=== PATIENT | male | born 1985 | race Caucasian/White ===

== ENCOUNTER 2017-06-06 17:05 | Emergency (ER) | payer BC ==
--- NOTE | 2017-06-06 17:33 | UC ---
UC General HPI - HPI Summary HPI Summary: 31 year old male present sudden with facial flushing and dizziness. I will send him to the ER. - History of Current Complaint Stated Complaint: FACE WENT FLUSH Time Seen by Provider: 06/06/17 17:33 Hx Obtained From: Patient Onset/Duration: Sudden Onset Onset Severity: Severe Current Severity: Severe - Allergy/Home Medications Allergies/Adverse Reactions: Allergies Allergy/AdvReac Type Severity Reaction Status Date / Time No Known Allergies Allergy Verified 06/06/17 17:25 Home Medications: Home Medications Omeprazole CAP* [Prilosec CAP* 20 MG] 20 mg PO DAILY 06/06/17 [History Confirmed 06/06/17] PMH/Surg Hx/FS Hx/Imm Hx Previously Healthy: Yes - Surgical History Surgical History: None - Family History Known Family History: Positive: Hypertension, Diabetes - Social History Alcohol Use: None Substance Use Type: None Smoking Status (MU): Never Smoked Tobacco Review of Systems Constitutional: Negative Skin: Other - FACIAL FLUSHING Eyes: Negative ENT: Negative Respiratory: Negative Cardiovascular: Negative Gastrointestinal: Negative Genitourinary: Negative Motor: Negative Neurovascular: Negative Musculoskeletal: Negative Neurological: Negative Psychological: Negative All Other Systems Reviewed And Are Negative: Yes Physical Exam Triage Information Reviewed: Yes Vital Signs Reviewed: Yes Eye Exam: Normal ENT Exam: Normal Dental Exam: Normal Neck exam: Normal Neck: Positive: 1 Respiratory Exam: Normal Cardiovascular Exam: Normal Abdominal Exam: Normal Musculoskeletal Exam: Normal Neurological Exam: Normal Psychological Exam: Normal Skin: Positive: Other - FACIAL FLUSHING Course/Dx - Differential Dx - Multi-Symptom Provider Diagnoses: FACIAL FLUSHING Discharge - Discharge Plan Condition: Stable Disposition: OTHER Discharge Disposition Comment: PATIENT SUGGESTED TO GO TO THE ER. Patient Education Materials: Palpitations (ED) Referrals: Doyle Burgess MD [Primary Care Provider] - Additional Instructions: patient suggested to go to the er.
[2017-06-06 17:39] VITALS: BP 153/88
== END 2017-06-06 17:51 ==
LOC: UCCORT 17:05
DX: R23.2 Flushing (principal); R42 Dizziness and giddiness
CPT/HCPCS: 93005; 99212; G0463